=== PATIENT | female | born 1980 ===

== ENCOUNTER → 2017-06-12 | Outpatient (CLI) | payer BC | END | disposition home or self-care (01) | LOC: LAB 11:54 → LAB SHORT 11:54 | PROVIDERS: Obstetrics & Gynecology | DX: Z01.419 Encounter for gynecological examination (general) (routine) without abnormal findings (principal) | CPT/HCPCS: 87624; G0123 ==

== ENCOUNTER → 2017-06-20 | Outpatient (CLI) | payer BC ==
[2017-06-20 09:14] LABS: CHOL/HDL RATIO 3.4; Cholesterol 148 mg/dL (50-200); HDL Cholesterol 43 mg/dL (>39); LDL/HDL RATIO 2.1; Low Density Lipoprotein Chol 90 mg/dL (0-110); Triglycerides 77 mg/dL (30-140); Very Low Density Lipoprot Chol 15 mg/dL (6-28)
== END ==
LOC: LAB 08:54 → LAB SHORT 08:54
PROVIDERS: Physician Assistant
DX: Z13.220 Encounter for screening for lipoid disorders (principal); Z13.1 Encounter for screening for diabetes mellitus
CPT/HCPCS: 80061; 83036